=== PATIENT | female | born 1975 | race African-American/Black ===

== ENCOUNTER 2017-09-03 15:35 | Observation (INO) | payer SELFPAY ==
[~2017-09-03] VITALS: Ht 160 cm; Wt 59.0 kg
[2017-09-03] VITALS (7 sets, daily range): BP systolic 102–128; BP diastolic 57–65; PULSE 78–97; RESP 16–20; TEMP 97.6–98.9; O2SAT 99–100
--- NOTE | 2017-09-03 16:07 | PD ---
HPI Chief Complaint: Seizure Time Seen by Provider: 15:50 Travel History International Travel<30 days: No Contact w/Intl Traveler<30days: No Traveled to known affect area: No History of Present Illness HPI Patient is a 42-year-old female who presents to emergency room after she had a seizure while at home. As per EMS, family members called as patient had a witnessed seizure while in bed. Reports that this episode lasted for about 5 minutes, reports that it resolved on its own. Patient reports no incontinence of urine or stool during this episode. Patient reports that she has had history of seizures in the past, she had onset of seizures 15 years ago after she suffered a traumatic brain injury. Reports that she was not started on any antiepileptics. Reports that the last time she had a seizure was about one year ago [place] Patient denies any new brain traumas here in the emergency room, denies n/v. Denies headache or dizziness. Denies fever/chills. Denies chest pain/sob. Denies use of drugs/ alcohol. Patient with no complaints at this time. [facility] Past Medical History Seizures: Yes Influenza Vaccination: No ?: Not LMP: 08/15/2017 Past Surgical History Section: Yes (X2) Social History Alcohol Use: No Tobacco Use: Yes (3-4 CIGS/DAY) Substance Use: No Allergies-Medications (Allergen,Severity, Reaction): Coded Allergies: No Known Allergies (Unverified , 09/03/17) Reported Meds & Prescriptions Reported Meds & Active Scripts Active No Active Prescriptions or Reported Medications Physical Exam Narrative GENERAL: NAD, Nontoxic SKIN: Focused skin assessment warm/dry. HEAD: Atraumatic. Normocephalic. EYES: Pupils equal and round. No scleral icterus. No injection or drainage. ENT: No nasal bleeding or discharge. Mucous membranes pink and moist. NECK: Trachea midline. No JVD. CARDIOVASCULAR: Regular rate and rhythm. No murmur appreciated. RESPIRATORY: No accessory muscle use. Clear to auscultation. Breath sounds equal bilaterally. GASTROINTESTINAL: Abdomen soft, non-tender, nondistended. Hepatic and splenic margins not palpable. MUSCULOSKELETAL: No obvious deformities. No clubbing. No cyanosis. No edema. NEUROLOGICAL: Awake and alert. No obvious cranial nerve deficits. Motor grossly within normal limits. Normal speech. CN 2-12 grossly intact with no neurological deficits PSYCHIATRIC: Appropriate mood and affect; insight and judgment normal. Data Data Last Documented VS Vital Signs Date Time Temp Pulse Resp B/P (MAP) Pulse Ox O2 Delivery O2 Flow Rate FiO2 09/03/17 15:51 98.2 97 16 128/63 (84) 100 Nasal Cannula 2.00 Orders Orders Complete Blood Count With Diff (09/03/17 15:50) Drug Screen, Random Urine (09/03/17 15:50) Electrocardiogram (09/03/17 ) Ct Brain W/O Iv Contrast(Rout) (09/03/17 ) Blood Glucose (09/03/17 15:50) Ecg Monitoring (09/03/17 15:50) Iv Access Insert/Monitor (09/03/17 15:50) Oximetry (09/03/17 15:50) Comprehensive Metabolic Panel (09/03/17 15:50) Urinalysis - C+S If Indicated (09/03/17 15:50) Type And Screen (09/03/17 16:25) Red Blood Cells (Rbc) (09/03/17 16:25) Blood Product Administration (09/03/17 16:25) Sodium Chlor 0.9% 250 Ml Inj (Ns 250 Ml (09/03/17 16:30) Labs Laboratory Tests Test 09/03/17 16:00 White Blood Count 6.6 TH/MM3 Red Blood Count 3.59 MIL/MM3 Hemoglobin 6.8 GM/DL Hematocrit 21.3 % Mean Corpuscular Volume 59.3 FL Mean Corpuscular Hemoglobin 19.1 PG Mean Corpuscular Hemoglobin Concent 32.2 % Red Cell Distribution Width 20.3 % Platelet Count 258 TH/MM3 Mean Platelet Volume 8.4 FL CBC Comment AUTO DIFF Urine Color LIGHT-YELLOW Urine Turbidity CLEAR Urine pH 5.5 Urine Specific [place] 1.008 Urine Protein 30 mg/dL Urine Glucose (UA) NEG mg/dL Urine Ketones TRACE mg/dL Urine Occult Blood NEG Urine Nitrite NEG Urine Bilirubin NEG Urine Urobilinogen LESS THAN 2.0 MG/DL Urine Leukocyte Esterase TRACE Urine RBC LESS THAN 1 /hpf Urine WBC 1 /hpf Urine Squamous Epithelial Cells 2 /hpf Microscopic Urinalysis Comment CULT NOT INDICATED Blood Urea Nitrogen 6 MG/DL Creatinine 0.70 MG/DL Random Glucose 86 MG/DL Total Protein 7.6 GM/DL Albumin 3.5 GM/DL Calcium Level 8.3 MG/DL Alkaline Phosphatase 63 U/L Aspartate Amino Transf (AST/SGOT) 15 U/L Alanine Aminotransferase (ALT/SGPT) 15 U/L Total Bilirubin 0.2 MG/DL Sodium Level 137 MEQ/L Potassium Level 3.3 MEQ/L Chloride Level 103 MEQ/L Carbon Dioxide Level 22.7 MEQ/L Anion Gap 11 MEQ/L Estimat Glomerular Filtration Rate 112 ML/MIN Urine Opiates Screen NEG Urine Barbiturates Screen NEG Urine Amphetamines Screen NEG Urine Benzodiazepines Screen NEG Urine Cocaine Screen POS Urine Cannabinoids Screen NEG MDM Medical Decision Making Medical Screen Exam Complete: Yes Emergency Medical Condition: Yes Medical Record Reviewed: Yes Interpretation(s) EKG at 1611: NSR at 78bpm, qt/qtc: 428/461, no acute st or t wave changes Vital Signs Date Time Temp Pulse Resp B/P (MAP) Pulse Ox O2 Delivery O2 Flow Rate FiO2 09/03/17 15:51 98.2 97 16 128/63 (84) 100 Nasal Cannula 2.00 09/03/17 15:49 98.2 91 16 128/63 (84) 100 Differential Diagnosis Seizures, ICH, electrolyte abnormality Narrative Course During the course of the patients emergency department visit, the patients history, examination, and differential diagnosis were reviewed with the patient. The patient was placed on a offset lithographic press operator with oximetry and frequent blood pressure monitoring. The patient had 20 IV access obtained and blood work sent for analysis. CBC & BMP Diagram 09/03/17 16:00 Total Protein 7.6, Albumin 3.5, Calcium Level 8.3 L, Alkaline Phosphatase 63, Aspartate Amino Transf (AST/SGOT) 15, Alanine Aminotransferase (ALT/SGPT) 15, Total Bilirubin 0.2 Patient's hemoglobin 6.8, she was typed and screened, 1 unit of blood ordered Patient signed out to care of Dr. Winslow at change of shift Scripts No Active Prescriptions or Reported Meds Leslie Gonzalez DO Sep 03, 2017 16:07
[2017-09-03 16:18] LABS: MEAN CELL VOLUME 59.3 FL (80.0-100.0); MEAN CORPUSCULAR HEMOGLOBIN 19.1 PG (27.0-34.0); MEAN CORPUSCULAR HGB CONC 32.2 % (32.0-36.0); MEAN PLATELET VOLUME 8.4 FL (7.0-11.0); PLATELET COUNT 258 TH/MM3 (150-450); RED BLOOD COUNT 3.59 MIL/MM3 (4.00-5.30); RED CELL DISTRIBUTION WIDTH 20.3 % (11.6-17.2); WHITE BLOOD COUNT 6.6 TH/MM3 (4.0-11.0)
[2017-09-03 16:25] LABS: HEMATOCRIT 21.3 % (35.0-46.0); HEMOGLOBIN 6.8 GM/DL (11.6-15.3)
[2017-09-03 16:26] LABS: BILIRUBIN, URINE NEG (NEG); BLOOD, URINE NEG (NEG); GLUCOSE,URINE NEG (NEG); KETONE, URINE TRACE mg/dL (NEG); NITRITE,URINE NEG (NEG); PH, URINE 5.5 (5.0-8.5); SQUAMOUS EPITHELIAL CELL URINE 2 /hpf (0-5); URINE COLOR LIGHT-YELLOW (YELLW/STRAW); URINE LEUKOCYTE ESTERASE TRACE (NEG)
[2017-09-03] MEDS ORDERED: SODIUM CHLOR 0.9% 250 ML INJ 250 ML IV ONE ×2 (16:30)
[2017-09-03 16:40] LABS: ALBUMIN 3.5 GM/DL (3.4-5.0); ALT (GPT) 15 U/L (10-53); AST (GOT) 15 U/L (15-37); BICARBONATE 22.7 MEQ/L (21.0-32.0); BLOOD UREA NITROGEN 6 MG/DL (7-18); CALCIUM 8.3 MG/DL (8.5-10.1); CHLORIDE 103 MEQ/L (98-107); GLOMERULAR FILTRATION RATE 112 ML/MIN (>89); GLUCOSE,RANDOM 86 MG/DL (74-106); SODIUM (NA) 137 MEQ/L (136-145)
[2017-09-03 16:42] LABS: ALKALINE PHOSPHATASE 63 U/L (45-117); TOTAL BILIRUBIN ADULT 0.2 MG/DL (0.2-1.0); TOTAL PROTEIN 7.6 GM/DL (6.4-8.2)
[2017-09-03 16:58] LABS: LYMPHOCYTES 31 % (9-44); MONOCYTES 8 % (0-8); POLYS (SEG NEUTROPHILS) 61 % (16-70); TARGET CELLS 1+ (NORMAL)
[2017-09-03] MEDS ORDERED: POTASSIUM CHLORIDE 10 MEQ CONTROLLED RELEASE TAB PO ONE ×2 (17:00)
--- NOTE | 2017-09-03 17:27 | RADRPT ---
EXAM DATE/TIME: 09/03/2017 17:03 [place] COMPARISON: No previous studies available for comparison. INDICATIONS : Seizure today RADIATION DOSE: 56.35 CTDIvol (mGy) MEDICAL HISTORY : Seizures. SURGICAL HISTORY : None. ENCOUNTER: Initial ACUITY: 1 day PAIN SCALE: 0/10 LOCATION: cranial TECHNIQUE: Multiple contiguous axial images were obtained of the head. Using automated exposure control and adj ustment of the mA and/or kV according to patient size, radiation dose was kept as low as reasonably a chievable to obtain optimal diagnostic quality images. DICOM format image data is available electro nically for review and comparison. FINDINGS: CEREBRUM: The ventricles are normal for age. No evidence of midline shift, mass lesion, hemorrhage or acute in farction. No extra-axial fluid collections are seen. POSTERIOR FOSSA: The cerebellum and brainstem are intact. The 4th ventricle is midline. The cerebellopontine angle i s unremarkable. EXTRACRANIAL: The visualized portion of the orbits is intact. SKULL: The calvaria is intact. No evidence of skull fracture. CONCLUSION: No acute findings in the brain. Albert Cai MD on September 03, 2017 at 17:25 Board Certified Radiologist. This report was verified electronically.
--- NOTE | 2017-09-03 18:46 | PD ---
Physical Exam Narrative GENERAL: SKIN: Warm and dry. HEAD: Atraumatic. Normocephalic. EYES: Pupils equal and round. No scleral icterus. No injection or drainage. ENT: No nasal bleeding or discharge. Mucous membranes pink and moist. NECK: Trachea midline. No JVD. CARDIOVASCULAR: Regular rate and rhythm. RESPIRATORY: No accessory muscle use. Clear to auscultation. Breath sounds equal bilaterally. GASTROINTESTINAL: Abdomen soft, non-tender, nondistended. Hepatic and splenic margins not palpable. MUSCULOSKELETAL: Extremities without clubbing, cyanosis, or edema. No obvious deformities. NEUROLOGICAL: Awake and alert. No obvious cranial nerve deficits. Motor grossly within normal limits. Five out of 5 muscle strength in the arms and legs. Normal speech. PSYCHIATRIC: Appropriate mood and affect; insight and judgment normal. Data Data Last Documented VS Vital Signs Date Time Temp Pulse Resp B/P (MAP) Pulse Ox O2 Delivery O2 Flow Rate FiO2 09/03/17 17:52 78 16 111/65 (80) 99 Room Air 09/03/17 15:51 98.2 2.00 Orders Orders Complete Blood Count With Diff (09/03/17 15:50) Drug Screen, Random Urine (09/03/17 15:50) Electrocardiogram (09/03/17 ) Ct Brain W/O Iv Contrast(Rout) (09/03/17 ) Blood Glucose (09/03/17 15:50) Ecg Monitoring (09/03/17 15:50) Iv Access Insert/Monitor (09/03/17 15:50) Oximetry (09/03/17 15:50) Comprehensive Metabolic Panel (09/03/17 15:50) Urinalysis - C+S If Indicated (09/03/17 15:50) Type And Screen (09/03/17 16:25) Red Blood Cells (Rbc) (09/03/17 16:25) Blood Product Administration (09/03/17 16:25) Sodium Chlor 0.9% 250 Ml Inj (Ns 250 Ml (09/03/17 16:30) Potassium Chloride (Kcl) (09/03/17 17:00) Labs Laboratory Tests Test 09/03/17 16:00 White Blood Count 6.6 TH/MM3 Red Blood Count 3.59 MIL/MM3 Hemoglobin 6.8 GM/DL Hematocrit 21.3 % Mean Corpuscular Volume 59.3 FL Mean Corpuscular Hemoglobin 19.1 PG Mean Corpuscular Hemoglobin Concent 32.2 % Red Cell Distribution Width 20.3 % Platelet Count 258 TH/MM3 Mean Platelet Volume 8.4 FL CBC Comment AUTO DIFF Differential Total Cells Counted 100 Neutrophils % (Manual) 61 % Lymphocytes % 31 % Monocytes % 8 % Neutrophils # (Manual) 4.0 TH/MM3 Differential Comment FINAL DIFF MANUAL Platelet Estimate NORMAL Platelet Morphology Comment NORMAL Target Cells 1+ Urine Color LIGHT-YELLOW Urine Turbidity CLEAR Urine pH 5.5 Urine Specific [place] 1.008 Urine Protein 30 mg/dL Urine Glucose (UA) NEG mg/dL Urine Ketones TRACE mg/dL Urine Occult Blood NEG Urine Nitrite NEG Urine Bilirubin NEG Urine Urobilinogen LESS THAN 2.0 MG/DL Urine Leukocyte Esterase TRACE Urine RBC LESS THAN 1 /hpf Urine WBC 1 /hpf Urine Squamous Epithelial Cells 2 /hpf Microscopic Urinalysis Comment CULT NOT INDICATED Blood Urea Nitrogen 6 MG/DL Creatinine 0.70 MG/DL Random Glucose 86 MG/DL Total Protein 7.6 GM/DL Albumin 3.5 GM/DL Calcium Level 8.3 MG/DL Alkaline Phosphatase 63 U/L Aspartate Amino Transf (AST/SGOT) 15 U/L Alanine Aminotransferase (ALT/SGPT) 15 U/L Total Bilirubin 0.2 MG/DL Sodium Level 137 MEQ/L Potassium Level 3.3 MEQ/L Chloride Level 103 MEQ/L Carbon Dioxide Level 22.7 MEQ/L Anion Gap 11 MEQ/L Estimat Glomerular Filtration Rate 112 ML/MIN Urine Opiates Screen NEG Urine Barbiturates Screen NEG Urine Amphetamines Screen NEG Urine Benzodiazepines Screen NEG Urine Cocaine Screen POS Urine Cannabinoids Screen NEG MDM Medical Record Reviewed: Yes Supervised Visit with CHANA: No Diagnosis Primary Impression: symptomatic anemia Admitting Information Admitting Physician Requests: Observation Scripts No Active Prescriptions or Reported Meds Blayne Winslow MD Sep 03, 2017 18:46
[2017-09-03] MEDS ORDERED: GADODIAMIDE PF 287 MG/ML 5 ML VIAL (for RAD MRI) IV PUSH ONE ×2 (19:23)
[2017-09-03] MEDS ORDERED: IOHEXOL 350 MG/ML 10 ML VIAL (for RAD DIAG) IVCONTRAST ONE ×2 (19:23)
[2017-09-03] MEDS ORDERED: ONDANSETRON HCL 4 MG/2 ML VIAL IVP PRN ×2 (19:30)
[2017-09-03] MEDS ORDERED: NALOXONE HCL 0.4 MG/ML AMP IV PUSH PRN ×2 (19:30)
[2017-09-03] MEDS ORDERED: SODIUM CHLORIDE 0.9% FLUSH 10 ML FLUSH IV FLUSH PRN ×2 (19:30)
[2017-09-03] MEDS ORDERED: SENNOSIDES 8.6 MG TAB PO PRN ×2 (19:30)
[2017-09-03] MEDS ORDERED: MAGNESIUM HYDROXIDE SUSP 30 ML CUP PO PRN ×2 (19:30)
[2017-09-03] MEDS ORDERED: LACTULOSE SYRUP 20 GM/30 ML CUP PO PRN ×2 (19:30)
[2017-09-03] MEDS ORDERED: BISACODYL 10 MG SUPP RECTAL PRN ×2 (19:30)
[2017-09-03] MEDS ORDERED: IRON SUCROSE INJ 100 MG in SODIUM CHLORIDE 0.9% INJ 100 ML IV ONE ×4 (21:00)
--- NOTE | 2017-09-03 21:08 | EKG ---
Date Performed: 09/03/2017 Time Performed: 16:11:10 PTAGE: 42 years EKG: Sinus rhythm NORMAL ECG PREVIOUS TRACING : 12/30/1992 10.31 Compared to prior tracing no significant change DOCTOR: Rolando Hernandez Interpretating Date/Time 09/03/2017 21:07:08
[2017-09-03 21:16] LABS: % SATURATION IRON PROFILE 2.5 % (20-50); IRON (FE) 12 MCG/DL (50-170); TOTAL IRON BINDING CAPACITY 476 MCG/DL (250-450)
[2017-09-03 21:19] LABS: FERRITIN 4 NG/ML (8-252)
--- NOTE | 2017-09-03 21:40 | HHI.HP ---
[facility] No Primary Care Physician Admission Diagnosis SYMPTOMATIC ANEMIA/NEARSYNCOPE Diagnoses: (1) Symptomatic anemia (2) Seizures Chief Complaint: Seizure x 1 and weakness Travel History International Travel<30 Days: No Contact w/Intl Traveler <30 Da: No Traveled to Known Affected Are: No History of Present Illness Written by Hayley Delvalle, acting as scribe for Dr. Lewis on 09/03/17 at 21:34. Reports having a seizure at about 4 p.m. Denies bowel or bladder incontinence. Reports weakness and fatigue with feeling cold for about 1 week. She has also been taking ibuprofen 800 mg once a day for the last week for headache. Denies history of anemia. States she's never been told she needs iron. Reports she had been on her period for 3 weeks with heavy bleeding. Off her period for the past week. Denies chest pain, shortness of breath, nausea, vomiting, or diarrhea. Denies abdominal pain, black or bloody stools. She states she's been having some constipation. Denies using cocaine or taking decongestants. She states she's been drinking a lot of coffee for the past week - 3 or 4 cups a day. No coffee prior to last week. Does not take antiepileptic medications, last seizure was 6 months ago, she does not follow with a neurologist. Review of Systems Except as stated in HPI: all other systems reviewed are Neg Past Family Social History Past Medical History Seizure - most recent seizure occurred 6 months ago TBI 15 years ago . Past Surgical History 21 years ago . Reported Medications Ibuprofen 800 mg once a day for about a week due to headache x 1 week . Allergies: Coded Allergies: No Known Allergies (Unverified , 09/03/17) Active Ordered Medications Current Medications Sodium Chloride 250 ml @ 15 mls/hr ONCE ONCE IV ; Start 09/03/17 at 16:30; Stop 09/04/17 at 09:09 Potassium Chloride (KCl) 30 meq ONCE ONCE PO Last administered on 09/03/17t 17:06; Start 09/03/17 at 17:00; Stop 09/03/17 at 17:01; Status DC Iron Sucrose 100 mg/Sodium Chloride 105 ml @ 105 mls/hr ONCE ONCE IV ; Start 09/03/17 at 21:00; Stop 09/03/17 at 21:59 Sodium Chloride (NS Flush) 2 ml UNSCH PRN IV FLUSH FLUSH AFTER USING IV ACCESS ; Start 09/03/17 at 19:30 Sodium Chloride (NS Flush) 2 ml BID IV FLUSH ; Start 09/03/17 at 21:00 Ondansetron HCl (Zofran Inj) 4 mg Q6H PRN IVP NAUSEA OR VOMITING; Start at 19:30 Naloxone HCl (Narcan Inj) 0.4 mg UNSCH PRN IV PUSH SEE LABEL COMMENTS; Start 09/03/17 at 19:30 Magnesium Hydroxide (Milk Of Magnesia Liq) 30 ml Q12H PRN PO Mild constipation ; Start 09/03/17 at 19:30 Sennosides (Senokot) 17.2 mg Q12H PRN PO Moderate constipation; Start at 19:30 Bisacodyl (Dulcolax Supp) 10 mg DAILY PRN RECTAL SEVERE CONSITIPATION; Start 09/03/17 at 19:30 Lactulose (Lactulose Liq) 30 ml DAILY PRN PO SEVERE CONSITIPATION; Start 09/03 at 19:30 Family History Mother with anemia No family history of colon cancer . Social History Tobacco: smoking since age 23 y/o - 4 - 6 cigarettes daily . Physical Exam Vital Signs Vital Signs Date Time Temp Pulse Resp B/P (MAP) Pulse Ox O2 Delivery O2 Flow Rate FiO2 09/03/17 20:37 98.8 88 17 102/57 (72) 99 09/03/17 19:21 97.6 87 16 113/62 (79) 100 Room Air 09/03/17 17:52 78 16 111/65 (80) 99 Room Air 09/03/17 15:51 98.2 97 16 128/63 (84) 100 Nasal Cannula 2.00 09/03/17 15:49 98.2 91 16 128/63 (84) 100 Physical Exam GENERAL: This is a well-nourished, well-developed patient, in no apparent distress. Lying in bed eating a [employer] sandwich. SKIN: No rashes, ecchymoses or lesions. Cool and dry. HEAD: Atraumatic. Normocephalic. EYES: No scleral icterus. No injection or drainage. ENT: Nose without bleeding, purulent drainage. NECK: Trachea midline. No JVD. CARDIOVASCULAR: Regular rate and rhythm without murmurs, gallops, or rubs. RESPIRATORY: Clear to auscultation. Breath sounds equal bilaterally. No wheezes , rales, or rhonchi. GASTROINTESTINAL: Abdomen soft, non-tender, nondistended. No guarding. MUSCULOSKELETAL: Extremities without clubbing, cyanosis, or edema. No calf tenderness. NEUROLOGICAL: Awake and alert. Motor and sensory grossly within normal limits. Normal speech. . Laboratory Laboratory Tests Test 09/03/17 16:00 White Blood Count 6.6 Red Blood Count 3.59 Hemoglobin 6.8 Hematocrit 21.3 Mean Corpuscular Volume 59.3 Mean Corpuscular Hemoglobin 19.1 Mean Corpuscular Hemoglobin Concent 32.2 Red Cell Distribution Width 20.3 Platelet Count 258 Mean Platelet Volume 8.4 CBC Comment AUTO DIFF Differential Total Cells Counted 100 Neutrophils % (Manual) 61 Lymphocytes % 31 Monocytes % 8 Neutrophils # (Manual) 4.0 Differential Comment FINAL DIFF MANUAL Platelet Estimate NORMAL Platelet Morphology Comment NORMAL Target Cells 1+ Urine Color LIGHT-YELLOW Urine Turbidity CLEAR Urine pH 5.5 Urine Specific [place] 1.008 Urine Protein 30 Urine Glucose (UA) NEG Urine Ketones TRACE Urine Occult Blood NEG Urine Nitrite NEG Urine Bilirubin NEG Urine Urobilinogen LESS THAN 2.0 Urine Leukocyte Esterase TRACE Urine RBC LESS THAN 1 Urine WBC 1 Urine Squamous Epithelial Cells 2 Microscopic Urinalysis Comment CULT NOT INDICATED Blood Urea Nitrogen 6 Creatinine 0.70 Random Glucose 86 Total Protein 7.6 Albumin 3.5 Calcium Level 8.3 Alkaline Phosphatase 63 Aspartate Amino Transf (AST/SGOT) 15 Alanine Aminotransferase (ALT/SGPT) 15 Total Bilirubin 0.2 Sodium Level 137 Potassium Level 3.3 Chloride Level 103 Carbon Dioxide Level 22.7 Anion Gap 11 Estimat Glomerular Filtration Rate 112 Iron Level 12 Total Iron Binding Capacity 476 Percent Iron Saturation 2.5 Ferritin 4 Urine Opiates Screen NEG Urine Barbiturates Screen NEG Urine Amphetamines Screen NEG Urine Benzodiazepines Screen NEG Urine Cocaine Screen POS Urine Cannabinoids Screen NEG Result Diagram: 09/03/17 1600 09/03/17 1600 Imaging Last Impressions Head CT 09/03/17 0000 Signed Impressions: Service Date/Time: Sunday, September 03, 2017 17:03 - CONCLUSION: No acute findings in the brain. Albert Cai MD . Caprini VTE Risk Assessment Caprini VTE Risk Assessment: No/Low Risk (score <= 1) VTE Pharm Contraindication: severe symptomatic anemia Caprini Risk Assessment Model Point Value = 1 Point Value = 2 Point Value = 3 Point Value = 5 Age 41-60 Minor surgery BMI > 25 kg/m2 Swollen legs Varicose veins or History of unexplained or recurrent spontaneous Oral contraceptives or hormone replacement Sepsis (< 1 month) Serious lung disease, including pneumonia (< 1 month) Abnormal pulmonary function Acute myocardial infarction Congestive heart failure (< 1 month) History of inflammatory bowel disease Medical patient at bed rest Age 61-74 Arthroscopic surgery Major open surgery (> 45 min) Laparoscopic surgery (> 45 min) Malignancy Confined to bed (> 72 hours) Immobilizing plaster cast Central venous access Age >= 75 History of VTE Family history of VTE Factor V Leiden Prothrombin [id number] Lupus anticoagulant Anticardiolipin antibodies Elevated serum homocysteine Heparin-induced thrombocytopenia Other congenital or acquired thrombophilia Stroke (< 1 month) Elective arthroplasty Hip, pelvis, or leg fracture Acute spinal cord injury (< 1 month) Prophylaxis Regimen Total Risk Factor Score Risk Level Prophylaxis Regimen 0-1 Low Early ambulation 2 Moderate Order ONE of the following: *Sequential Compression Device (SCD) *Heparin 5000 units SQ BID 3-4 Higher Order ONE of the following medications: *Heparin 5000 units SQ TID *Enoxaparin/Lovenox 40 mg SQ daily (WT < 150 kg, CrCl > 30 mL/min) *Enoxaparin/Lovenox 30 mg SQ daily (WT < 150 kg, CrCl > 10-29 mL/min) *Enoxaparin/Lovenox 30 mg SQ BID (WT < 150 kg, CrCl > 30 mL/min) AND/OR *Sequential Compression Device (SCD) 5 or more Highest Order ONE of the following medications: *Heparin 5000 units SQ TID (Preferred with Epidurals) *Enoxaparin/Lovenox 40 mg SQ daily (WT < 150 kg, CrCl > 30 mL/min) *Enoxaparin/Lovenox 30 mg SQ daily (WT < 150 kg, CrCl > 10-29 mL/min) *Enoxaparin/Lovenox 30 mg SQ BID (WT < 150 kg, CrCl > 30 mL/min) AND *Sequential Compression Device (SCD) Assessment and Plan Problem List: (1) Symptomatic anemia ICD Code: D64.9 - Anemia, unspecified (2) Seizures ICD Code: R56.9 - Unspecified convulsions (3) Hypokalemia ICD Code: E87.6 - Hypokalemia Assessment and Plan 42 y/o female who presented to the ED on 09/03 after a witnessed seizure at home who was found to be severely anemic in ED. Symptomatic Anemia - s/p 1 unit of PRBCs - with symptom improvement - Iron/TIBC profile, ferritin to check for CELESTE - iron supplementation with Iron Sucrose 100 mg IV - advised follow up with reproduction technician as an outpatient for management of heavy menses - repeat CBC in a.m. and follow results Seizure, recurrent - seizure precautions - verbally ordered - neuro checks q4h - Consult neurology - appreciate assistance - EEG study to evaluate for seizure activity - advised caffeine avoidance-turns out cocaine is positive on urine drug screen. She denied cocaine. I would recommend she stop cocaine. Hypokalemia - Potassium 3.3 on admission - Potassium replaced - recheck BMP in a.m. and follow results including potassium level and provide additional replacement if needed. DVT prophylaxis - SCDs Discussed Condition With ER physician and patient This note was transcribed by familia Delvalle. I, Dr. Ger Lewis personally performed the history, physical exam, and medical decision making; and confirmed the accuracy of the information in the transcribed note. Authenticated by Dr. Ger Lewis on 09/04/17 at 07:10. . Hayley Delvalle Sep 03, 2017 21:40 Ger Lewis MD Sep 04, 2017 07:10
[2017-09-03] MEDS: SODIUM CHLORIDE 0.9% FLUSH 10 ML FLUSH IV FLUSH SCH ×2 (21:44)
[2017-09-04] VITALS (12 sets, daily range): BP systolic 103–129; BP diastolic 56–76; PULSE 70–89; RESP 16–22; TEMP 97.6–98.9; O2SAT 100
[2017-09-04 08:20] LABS: AUTOMATED NEUTROPHIL # 7.4 TH/MM3 (1.8-7.7); BASOPHIL # 0.1 TH/MM3 (0-0.2); BASOPHIL % 0.7 % (0.0-2.0); EOSINOPHIL # 0.1 TH/MM3 (0-0.4); EOSINOPHIL % 1.4 % (0.0-4.0); HEMATOCRIT 30.3 % (35.0-46.0); HEMOGLOBIN 9.1 GM/DL (11.6-15.3); LYMPH % 19.5 % (9.0-44.0); MEAN CELL VOLUME 64.6 FL (80.0-100.0); MEAN CORPUSCULAR HEMOGLOBIN 19.3 PG (27.0-34.0); MEAN PLATELET VOLUME 8.6 FL (7.0-11.0); MONO % 7.5 % (0.0-8.0); MONOCYTE # 0.8 TH/MM3 (0-0.9); NEUT % 70.9 % (16.0-70.0); PLATELET COUNT 309 TH/MM3 (150-450); RED BLOOD COUNT 4.69 MIL/MM3 (4.00-5.30); RED CELL DISTRIBUTION WIDTH 23.7 % (11.6-17.2); WHITE BLOOD COUNT 10.4 TH/MM3 (4.0-11.0)
[2017-09-04 08:21] LABS: MEAN CORPUSCULAR HGB CONC 29.9 % (32.0-36.0)
[2017-09-04 08:31] LABS: BICARBONATE 24.5 MEQ/L (21.0-32.0); CALCIUM 8.4 MG/DL (8.5-10.1); CREATININE 0.73 MG/DL (0.50-1.00)
[2017-09-04] MEDS: SODIUM CHLORIDE 0.9% FLUSH 10 ML FLUSH IV FLUSH SCH ×4 (09:00→20:02)
[2017-09-04] MEDS ORDERED: SODIUM CHLOR 0.9% 1000 ML INJ 1,000 ML IV SCH ×2 (09:00)
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
--- NOTE | 2017-09-04 09:26 | HHI.PR ---
Subjective Remarks Follow up on patient with seizure, anemia. Patient seen and examined. Patient witnessed ambulating in hallway holding grandchild. Family at bedside. No seizure activity reported. States she feels better after receiving unit of blood. She is hoping to be discharged today. She denies any complaints. Denies any chest pain, dyspnea, N/V, chest pain, abdominal pain, urinary complaints, diarrhea or constipation. Objective Vitals Vital Signs Date Time Temp Pulse Resp B/P (MAP) Pulse Ox O2 Delivery O2 Flow Rate FiO2 09/04/17 08:35 86 124/76 (92) 100 09/04/17 08:34 86 22 113/66 (82) 100 09/04/17 07:51 98.6 82 22 117/63 (81) 100 09/04/17 02:52 98.5 85 16 103/60 (74) 100 09/04/17 00:40 98.9 89 18 120/68 (85) 100 09/04/17 00:32 98.9 89 18 120/68 100 09/03/17 22:12 98.9 85 18 116/61 100 09/03/17 21:58 98.5 78 20 108/64 100 09/03/17 20:37 98.8 88 17 102/57 (72) 99 09/03/17 19:21 97.6 87 16 113/62 (79) 100 Room Air 09/03/17 17:52 78 16 111/65 (80) 99 Room Air 09/03/17 15:51 98.2 97 16 128/63 (84) 100 Nasal Cannula 2.00 09/03/17 15:49 98.2 91 16 128/63 (84) 100 I/O 09/03/17 09/03/17 09/03/17 09/04/17 09/04/17 09/04/17 07:00 15:00 23:00 07:00 15:00 23:00 Intake Total 10 ml 525 ml Balance 10 ml 525 ml Intake IV Total 205 ml Packed Cells 320 ml Blood Product IV Normal Saline Flush 10 ml Result Diagram: 09/04/17 0657 09/04/17 0657 Imaging Last Impressions Head CT 09/03/17 0000 Signed Impressions: Service Date/Time: Sunday, September 03, 2017 17:03 - CONCLUSION: No acute findings in the brain. Albert Cai MD Objective Remarks GENERAL: This is a well-nourished, well-developed patient, in no apparent distress. Awake and alert. Ambulating in hallway carrying granddaughter. SKIN: No rashes, ecchymoses or lesions. Cool and dry. HEAD: Atraumatic. Normocephalic. EYES: No scleral icterus. No injection or drainage. EOMI. ENT: Nose without bleeding, purulent drainage. MMM. NECK: Trachea midline. CARDIOVASCULAR: Regular rate and rhythm without murmurs, gallops, or rubs. RESPIRATORY: Clear to auscultation. Breath sounds equal bilaterally. No wheezes , rales, or rhonchi. GASTROINTESTINAL: Abdomen soft, non-tender, nondistended. No guarding. MUSCULOSKELETAL: Extremities without clubbing, cyanosis, or edema. No calf tenderness. NEUROLOGICAL: Awake and alert. Motor and sensory grossly within normal limits. Normal speech. Medications and IVs Current Medications Medications (Trade) Dose Ordered Sig/Monet Route Start Time Stop Time Status Last Admin (NS Flush) 2 ml UNSCH PRN IV FLUSH 09/03/17 19:30 (NS Flush) 2 ml BID IV FLUSH 09/03/17 21:00 09/03/17 21:44 (Zofran Inj) 4 mg Q6H PRN IVP 09/03/17 19:30 (Narcan Inj) 0.4 mg UNSCH PRN IV PUSH 09/03/17 19:30 (Milk Of Magnesia Liq) 30 ml Q12H PRN PO 09/03/17 19:30 (Senokot) 17.2 mg Q12H PRN PO 09/03/17 19:30 (Dulcolax Supp) 10 mg DAILY PRN RECTAL 09/03/17 19:30 (Lactulose Liq) 30 ml DAILY PRN PO 09/03/17 19:30 (Flu (Quadrivalent) Vaccine Inj) 0.5 ml ONCE ONCE IM 09/04/17 10:00 09/04/17 10:01 Sodium Chloride 1,000 ml @ 75 mls/hr [id number] IV 09/04/17 09:00 (Ferrous Sulfate) 325 mg BID PO 09/04/17 09:00 UNV (Vitamin C) 500 mg BID PO 09/04/17 09:00 UNV A/P Problem List: (1) Symptomatic anemia ICD Code: D64.9 - Anemia, unspecified (2) Seizures ICD Code: R56.9 - Unspecified convulsions (3) Hypokalemia ICD Code: E87.6 - Hypokalemia Assessment and Plan 42 y/o female who presented to the ED on 09/03 after a witnessed seizure at home who was found to be severely anemic in ED. Symptomatic Anemia, hemoglobin 6.8 CELESTE - s/p 1 unit of PRBCs - with symptom improvement. H/H 9.1/30.3 this am. - Iron 12, TIBC 476, %sat 2.5, Ferritin 4. s/p Iron Sucrose 100mg IV. Begin po iron supplementation with vitamin C. - advised follow up with project manager [employer] [facility] as an outpatient for management of heavy menses Seizure, recurrent - seizure precautions - verbally ordered - neuro checks q4h - Neurology following - appreciate assistance. Workup in progress. EEG and MRI brain pending. - Orthostatics negative. - advised caffeine avoidance-turns out cocaine is positive on urine drug screen. She denied cocaine. I would recommend she stop cocaine. Hypokalemia - Potassium 3.3 on admission - Potassium replaced - Resolved DVT prophylaxis - SCDs Discussed with patient and Dr. Chirinos Discharge Planning Pending further workup and Neurology clearance for discharge Lissy Alvarez Sep 04, 2017 09:26
[2017-09-04 09:44] LABS: CHOLESTEROL 186 MG/DL (120-200); TRIGLYCERIDES 74 MG/DL (42-150)
[2017-09-04] MEDS ORDERED: ASCORBIC ACID 500 MG TAB PO SCH ×2 (10:00)
[2017-09-04] MEDS ORDERED: FERROUS SULFATE 325 MG (65 MG ELEMENTAL IRON) TAB PO SCH ×2 (10:00)
[2017-09-04] MEDS ORDERED: INFLUENZA VIRUS VACCINE (QUADRIVALENT) 0.5 ML SYR IM ONE ×2 (10:00)
[2017-09-04 10:09] LABS: CHOLESTEROL/ HDL RATIO 2.52 RATIO; HDL CHOLESTEROL 73.6 MG/DL (40.0-60.0); LDL CHOLESTEROL 98 MG/DL (0-99); TROPONIN I LESS THAN 0.02 NG/ML (0.02-0.05)
--- NOTE | 2017-09-04 10:42 | RADRPT ---
EXAM DATE/TIME: 09/04/2017 10:02 [facility] COMPARISON: No previous studies available for comparison. INDICATIONS : Cerebrovascular accident. MEDICAL HISTORY : Seizures. Anemia. SURGICAL HISTORY : section. ENCOUNTER: Initial ACUITY: 1 day PAIN SCORE: 0/10 LOCATION: Bilateral neck PEAK SYSTOLIC VELOCITIES (cm/sec): ICA/CCA RATIO: Right: 1.1 Left: 1.0 ICA: Right: 109 Left: 111 CCA: Right: 104 Left: 111 ECA: Right: 107 Left: 79 VERTEBRAL: Right: 66 antegrade Left: 22 antegrade Elevated flow velocities and ICA/CCA ratios have been found to correlate with increased degrees of vessel stenosis, calculated as percentage of diameter relative to a normal segment of distal ICA/CCA FINDINGS: RIGHT CAROTID: There is no evidence for a hemodynamically significant carotid stenosis. Minimal int imal hyperplasia is present with scattered calcific plaque. LEFT CAROTID: There is no evidence for a hemodynamically significant carotid stenosis. Minimal inti mal hyperplasia is present with scattered calcific plaque. VERTEBRAL ARTERIES: Flow is antegrade in both vertebral arteries. MISCELLANEOUS: There are no ancillary masses or adenopathy. CONCLUSION: Negative examination for a hemodynamically significant carotid stenosis. Board Certified Radiologist. This report was verified electronically.
--- NOTE | 2017-09-04 12:17 | ECHRPT ---
Indication: CVA/TIA CONCLUSIONS Normal left ventricular size and wall thickness. The left ventricular systolic function is normal wi th an estimated ejection fraction in the range of 60-65%. Left ventricular diastolic function parameters a re normal. Trace mitral valve regurgitation. There may be a torn chordae tendinae in the mitral valve structu re but without any mitral prolapse or significant regurgitation. Trace tricuspid regurgitation. BP: 124 / 76 HR: Rhythm: Sinus MEASUREMENTS (Male / Female) Normal Values Technical Quality:Fair 2D ECHO LV Diastolic Diameter PLAX 4.7 cm 4.2 - 5.9 / 3.9 - 5.3 cm LV Systolic Diameter PLAX 3.7 cm IVS Diastolic Thickness 0.7 cm 0.6 - 1.0 / 0.6 - 0.9 cm LVPW Diastolic Thickness 0.7 cm 0.6 - 1.0 / 0.6 - 0.9 cm LV Relative Wall Thickness 0.3 LVOT Diameter 2.1 cm Aortic Root Diameter 3.0 cm LA Systolic Diameter LX 2.7 cm 3.0 - 4.0 / 2.7 - 3.8 cm M-MODE AV Cusp Separation MM 2.4 cm DOPPLER AV Peak Velocity 125.0 cm/s AV Peak Gradient 6.3 mmHg AV Mean Gradient 3.0 mmHg AV Velocity Time Integral 22.5 cm LVOT Peak Velocity 72.9 cm/s LVOT Peak Gradient 2.1 mmHg LVOT Velocity Time Integral 12.8 cm AV Area Cont Eq vti 2.0 cm AV Area Cont Eq pk 2.0 cm Mitral E Point Velocity 72.6 cm/s Mitral A Point Velocity 50.8 cm/s Mitral E to A Ratio 1.4 LV E' Lateral Velocity 13.8 cm/s Mitral E to LV E' Lateral Ratio 5.3 LV E' Septal Velocity 8.3 cm/s Mitral E to LV E' Septal Ratio 8.8 TR Peak Velocity 171.0 cm/s TR Peak Gradient 11.7 mmHg PV Peak Velocity 63.9 cm/s PV Peak Gradient 1.6 mmHg FINDINGS LEFT VENTRICLE Normal left ventricular size and wall thickness. The left ventricular systolic function is normal wi th an estimated ejection fraction in the range of 60-65%. Left ventricular diastolic function parameters a re normal. RIGHT VENTRICLE Normal right ventricular size and systolic function. LEFT ATRIUM The left atrial size is normal. RIGHT ATRIUM The right atrial size is normal. ATRIAL SEPTUM Normal atrial septal thickness without atrial level shunting by limited color doppler interrogation. AORTA The aortic root and proximal ascending aorta are normal in size on limited imaging. MITRAL VALVE Trace mitral valve regurgitation. There may be a torn chordae tendinae in the mitral valve structu re but without any mitral prolapse or significant regurgitation. AORTIC VALVE Trileaflet aortic valve. No aortic valve stenosis or regurgitation. TRICUSPID VALVE Trace tricuspid regurgitation. PULMONARY VALVE The pulmonary valve is not well visualized. VESSELS The inferior vena cava is normal in size. PERICARDIUM No pericardial effusion. Gianfranco Zelaya MD (Electronically Signed) Final Date:04 September 2017 12:16
[2017-09-04] MEDS: ASCORBIC ACID 500 MG TAB PO SCH ×4 (12:58→17:53)
[2017-09-04] MEDS: FERROUS SULFATE 325 MG (65 MG ELEMENTAL IRON) TAB PO SCH ×4 (12:58→17:53)
--- NOTE | 2017-09-04 13:09 | RADRPT ---
EXAM DATE/TIME: 09/04/2017 11:34 [facility] COMPARISON: CT BRAIN W/O CONTRAST, September 03, 2017, 17:03. INDICATIONS : Syncope yesterday. Seizure. CONTRAST: 11 cc Omniscan (gadodiamide) IV MEDICAL HISTORY : Seizures. SURGICAL HISTORY : section. ENCOUNTER: Initial ACUITY: 2 day PAIN SCORE: 0/10 LOCATION: head TECHNIQUE: Multiplanar, multisequence MRI of the brain was performed both prior to and following the administrat ion of paramagnetic contrast. FINDINGS: CEREBRUM: The ventricles are normal for age. No evidence of midline shift, mass lesion, hemorrhage or acute in farction. No extraaxial fluid collections are seen. The pituitary gland and suprasellar cistern are normal in configuration. WHITE MATTER: No significant signal abnormalities are seen in the white matter. POSTERIOR FOSSA: The cerebellum and brainstem are intact. The 4th ventricle is midline. The cerebellopontine angle is unremarkable. The cerebellar tonsils are normal in position. DIFFUSION IMAGING: No focal areas of restricted diffusion are seen. No evidence of acute infarction. EXTRACRANIAL: The visualized portions of the orbits and paranasal sinuses are unremarkable. A lipoma is noted in th e scalp over the superior calvarium. POST-CONTRAST: No abnormal areas of parenchymal or dural enhancement. No evidence of blood-brain barrier breakdown. CONCLUSION: 1. No acute hemorrhage, mass or infarction. 2. Scalp lipoma. Amando Wang MD on September 04, 2017 at 13:06 Board Certified Radiologist. This report was verified electronically.
--- NOTE | 2017-09-04 13:28 | RADRPT ---
EXAM DATE/TIME: 09/04/2017 11:34 [facility] COMPARISON: MRI BRAIN W & W/O CONTRAST, September 04, 2017, 11:34. INDICATIONS : Syncope. MEDICAL HISTORY : Seizures. SURGICAL HISTORY : section. ENCOUNTER: Initial ACUITY: 2 day PAIN SCORE: 0/10 LOCATION: head Please note a normal MRA of the brain does not entirely exclude the possibility of a small aneurysm, nor the possibility of distal intracranial vessel disease. TECHNIQUE: 3D time of flight MRA was performed. Source images, multiplanar STS MIP, and 3D volume MIP reconstru ctions were reviewed. FINDINGS: There is minimal scattered apparent stenoses present particularly in the right hemisphere at the orig in of the anterior and posterior division of the right middle cerebral artery. There is no major branch vessel occlusion. There is no aneurysm or vascular displacement. CONCLUSION: Abnormal MRA of the brain. This can be seen with vasculitis. Toney Nova MD FACR on September 04, 2017 at 13:26 Board Certified Radiologist. This report was verified electronically.
[2017-09-04] MEDS: SODIUM CHLOR 0.9% 1000 ML INJ 1,000 ML IV SCH ×2 (18:39)
--- NOTE | 2017-09-04 21:08 | RADRPT ---
EXAM DATE/TIME: 09/04/2017 20:01 [facility] COMPARISON: US CAROTID ARTERIES, September 04, 2017, 10:02. INDICATIONS : Syncope for one day. IV CONTRAST: 100 cc Omnipaque 350 (iohexol) IV RADIATION DOSE: 15.85 CTDIvol (mGy) ; Combined studies MEDICAL HISTORY : Seizures. SURGICAL HISTORY : section. ENCOUNTER: Initial ACUITY: 1 day PAIN SCALE: 3/10 LOCATION: Bilateral neck region. Elevated flow velocities and ICA/CCA ratios have been found to correlate with increased degrees of vessel stenosis, calculated as percentage of diameter relative to a normal segment of distal ICA/CCA. TECHNIQUE: Volumetric scanning was performed using a multirow detector CT scanner. The data was post processed with a variety of visualization algorithms including full-volume maximum intensity projection, multip lanar sliding thin-slab reformation, curved-planar reformation, and surface-rendering techniques. Us ing automated exposure control and adjustment of the mA and/or kV according to patient size, radiatio n dose was kept as low as reasonably achievable to obtain optimal diagnostic quality images. DICOM f ormat image data is available electronically for review and comparison. FINDINGS: AORTIC ARCH: There is a three-vessel origin of the great vessels from the aorta. No evidence of ostial narrowing. RIGHT CAROTID: The common carotid artery is intact. The carotid bulb has a normal configuration without ulceration o r narrowing. The internal carotid artery lumen is smooth without stenosis. The external carotid mari ry is intact. LEFT CAROTID: The common carotid artery is intact. The carotid bulb has a normal configuration without ulceration or narrowing. The internal carotid artery lumen is smooth without stenosis. The external carotid ar dominic is intact. VERTEBRALS: The vertebral arteries have a symmetric diameter. No stenotic lesions are seen. CONCLUSION: The carotid and vertebral arteries are intact. Please see CT of the brain for further details on the intracranial circulation. Amando Wang MD on September 04, 2017 at 21:04 Board Certified Radiologist. This report was verified electronically.
--- NOTE | 2017-09-04 21:48 | RADRPT ---
EXAM DATE/TIME: 09/04/2017 20:01 [facility] COMPARISON: No previous studies available for comparison. INDICATIONS : Syncope for one day. IV CONTRAST: 100 cc Omnipaque 350 (iohexol) IV RADIATION DOSE: 15.85 CTDIvol (mGy) ; Combined studies MEDICAL HISTORY : Seizures. SURGICAL HISTORY : section. ENCOUNTER: Initial ACUITY: 1 day PAIN SCALE: 3/10 LOCATION: Bilateral cranial TECHNIQUE: Volumetric scanning was performed using a multi-row detector CT scanner. The data was post processed with a variety of visualization algorithms including full volume maximum intensity projection, multi -planar sliding thin slab reformation, curved planar reformation, and surface rendering techniques. Using automated exposure control and adjustment of the mA and/or kV according to patient size, radiat ion dose was kept as low as reasonably achievable to obtain optimal diagnostic quality images. DICO M format image data is available electronically for review and comparison. FINDINGS: There is excellent visualization of the major intracranial arteries out to the second-order branch ve ssels. There is no evidence for aneurysm, vessel truncation or stenosis, and no evidence for vascula r malformation. The anterior, middle and posterior cerebral arteries all demonstrate a fine beaded like appearance wi th no high-grade stenosis identified. The vertebral arteries are intact. The basilar artery appears u nremarkable CONCLUSION: Fine beaded like appearance to the cerebral arteries of concern for vasculitis. Amando Wang MD on September 04, 2017 at 21:45 Board Certified Radiologist. This report was verified electronically.
[2017-09-04 22:08] LABS: HEMOGLOBIN A1C 5.6 % (4.3-6.0)
[2017-09-05 00:10] VITALS: PULSE 80
--- NOTE | 2017-09-05 00:10 | MG ---
cc: KIM HOUSE MD Sex: F DATE OF : [address] Lewis. 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 Caffeine , tobacco abuse. Anemia, lab work positive for cocaine. MEDICATIONS 1. Ferrous sulfate. 2. Vitamin C EEG DESCRIPTION The background rhythm is 9-10 Hz alpha located posterior with posterior to anterior gradient attenuates to eye-opening. Superimposed by excess beta activity. Hyperventilation did not change the background of the recording. Photic stimulation did not elicit driving response. During the EEG recording there was slowing of the background replaced by 5-6 Hz theta rhythm. With the appearance of sleep spindles K complex transitioned into stage II sleep. There were no electrographic seizures or epileptiform discharges noted during the recording. INTERPRETATION: This is a normal awake, drowsy and asleep EEG. Excess beta activity is a nonspecific finding that may be related to medication effects like benzos and barbiturate. Absence of electrographic seizures or epileptiform discharges does not rule out a diagnosis of epilepsy. Clinical correlation is recommended. Kim House MD [facility] /8:13 PM /12:10 AM ANDI
--- NOTE | 2017-09-05 00:10 | MG ---
cc: KIM HOUSE MD Sex: F DATE OF : [address] Lewis. 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 Caffeine , tobacco abuse. Anemia, lab work positive for cocaine. MEDICATIONS 1. Ferrous sulfate. 2. Vitamin C EEG DESCRIPTION The background rhythm is 9-10 Hz alpha located posterior with posterior to anterior gradient attenuates to eye-opening. Superimposed by excess beta activity. Hyperventilation did not change the background of the recording. Photic stimulation did not elicit driving response. During the EEG recording there was slowing of the background replaced by 5-6 Hz theta rhythm. With the appearance of sleep spindles K complex transitioned into stage II sleep. There were no electrographic seizures or epileptiform discharges noted during the recording. INTERPRETATION: This is a normal awake, drowsy and asleep EEG. Excess beta activity is a nonspecific finding that may be related to medication effects like benzos and barbiturate. Absence of electrographic seizures or epileptiform discharges does not rule out a diagnosis of epilepsy. Clinical correlation is recommended. Kim House MD [facility]/[place] /8:13 PM /12:10 AM ANDI
--- NOTE | 2017-09-05 00:10 | MG ---
cc: KIM HOUSE MD Sex: F DATE OF : [address] Lewis. 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 Caffeine , tobacco abuse. Anemia, lab work positive for cocaine. MEDICATIONS 1. Ferrous sulfate. 2. Vitamin C EEG DESCRIPTION The background rhythm is 9-10 Hz alpha located posterior with posterior to anterior gradient attenuates to eye-opening. Superimposed by excess beta activity. Hyperventilation did not change the background of the recording. Photic stimulation did not elicit driving response. During the EEG recording there was slowing of the background replaced by 5-6 Hz theta rhythm. With the appearance of sleep spindles K complex transitioned into stage II sleep. There were no electrographic seizures or epileptiform discharges noted during the recording. INTERPRETATION: This is a normal awake, drowsy and asleep EEG. Excess beta activity is a nonspecific finding that may be related to medication effects like benzos and barbiturate. Absence of electrographic seizures or epileptiform discharges does not rule out a diagnosis of epilepsy. Clinical correlation is recommended. Kim House MD [facility]/[place] /8:13 PM /12:10 AM ANDI
[2017-09-05 03:09] VITALS: BP 96/55; PULSE 72; RESP 16; TEMP 98.9; O2SAT 100
[2017-09-05] MEDS: SODIUM CHLOR 0.9% 1000 ML INJ 1,000 ML IV SCH ×2 (04:28)
[2017-09-05 06:30] LABS: HEMATOCRIT 28.4 % (35.0-46.0); HEMOGLOBIN 8.6 GM/DL (11.6-15.3)
[2017-09-05 07:10] VITALS: PULSE 78
[2017-09-05 07:20] VITALS: BP_SYST 106; BP_SYST 108; BP_SYST 112; BP_DIAS 51; BP_DIAS 62; BP_DIAS 63; PULSE 81; RESP 20; TEMP 98.7; O2SAT 100
--- NOTE | 2017-09-05 07:35 | HHI.PR ---
Subjective Remarks sr Objective Vital Signs Date Time Temp Pulse Resp B/P (MAP) Pulse Ox O2 Delivery O2 Flow Rate FiO2 09/05/17 07:20 98.7 81 20 106/51 (69) 100 108/62 (77) 112/63 (79) 09/05/17 03:09 98.9 72 16 96/55 (69) 100 09/05/17 00:10 80 09/04/17 22:41 97.9 81 16 109/61 (77) 100 09/04/17 20:05 80 09/04/17 19:57 98.2 82 16 126/56 (79) 100 09/04/17 15:50 77 09/04/17 13:24 97.6 71 20 115/64 (81) 100 117/74 (88) 129/73 (91) 09/04/17 09:33 70 09/04/17 08:35 86 124/76 (92) 100 09/04/17 08:34 86 22 113/66 (82) 100 09/04/17 07:51 98.6 82 22 117/63 (81) 100 I/O 09/04/17 09/04/17 09/04/17 09/05/17 09/05/17 09/05/17 07:00 15:00 23:00 07:00 15:00 23:00 Intake Total 525 ml 720 ml Balance 525 ml 720 ml Intake Oral 720 ml IV Total 205 ml Packed Cells 320 ml # Voids 1 2 Result Diagram: 09/05/17 0513 09/04/17 0657 Objective Remarks awake alert nad moves all well Assessment and Plan Assessment and Plan imp echo torn teninae mv defer to med team holter pend esr 30 cta neck neg mri brain neg eeg nl cta head some slight beading i think likley from cocaine use and i dw dc it fu carlo anca crp i think unlikley from vasculitis per se i called but no anser to uncle [phone] and need to dw him b4 dc today if he could call my office ow ok to dc dc cocaine not to drive for 6 mo Mac Sosa MD Sep 05, 2017 07:35
[2017-09-05] MEDS: FERROUS SULFATE 325 MG (65 MG ELEMENTAL IRON) TAB PO SCH ×2 (10:23)
[2017-09-05] MEDS: ASCORBIC ACID 500 MG TAB PO SCH ×2 (10:23)
[2017-09-05] MEDS: SODIUM CHLORIDE 0.9% FLUSH 10 ML FLUSH IV FLUSH SCH ×2 (10:24)
--- NOTE | 2017-09-05 11:17 | HHI.PR ---
Subjective Remarks Follow up on patient with seizure, anemia. Patient seen and examined. Patient states she feels well. Denies any complaints. No seizure activity reported. Denies any dyspnea, chest pain, lightheadedness or dizziness. She reports heavy menses for the past few months. 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 Objective Vitals Vital Signs Date Time Temp Pulse Resp B/P (MAP) Pulse Ox O2 Delivery O2 Flow Rate FiO2 09/05/17 07:20 98.7 81 20 106/51 (69) 100 108/62 (77) 112/63 (79) 09/05/17 03:09 98.9 72 16 96/55 (69) 100 09/05/17 00:10 80 09/04/17 22:41 97.9 81 16 109/61 (77) 100 09/04/17 20:05 80 09/04/17 19:57 98.2 82 16 126/56 (79) 100 09/04/17 15:50 77 09/04/17 13:24 97.6 71 20 115/64 (81) 100 117/74 (88) 129/73 (91) I/O 09/04/17 09/04/17 09/04/17 09/05/17 09/05/17 09/05/17 07:00 15:00 23:00 07:00 15:00 23:00 Intake Total 525 ml 720 ml Balance 525 ml 720 ml Intake Oral 720 ml IV Total 205 ml Packed Cells 320 ml # Voids 1 2 Result Diagram: 09/05/17 0513 09/04/17 0657 Imaging Last Impressions Neck CTA 09/04/17 1839 Signed Impressions: Service Date/Time: Monday, September 04, 2017 20:01 - CONCLUSION: The carotid and vertebral arteries are intact. Please see CT of the brain for further details on the intracranial circulation. Amando Wang MD Head Magnetic Resonance Angiography 09/04/17819 Signed Impressions: Service Date/Time: Monday, September 04, 2017 11:34 - CONCLUSION: Abnormal MRA of the brain. This can be seen with vasculitis. Toney Nova MD FACR Carotid Artery Ultrasound 09/04/17819 Signed Impressions: Service Date/Time: Monday, September 04, 2017 10:02 - CONCLUSION: Negative examination for a hemodynamically significant carotid stenosis. Board Certified Radiologist. This report was verified electronically. Brain MRI 09/04/17 0820 Signed Impressions: Service Date/Time: Monday, September 04, 2017 11:34 - CONCLUSION: 1. No acute hemorrhage, mass or infarction. 2. Scalp lipoma. Amando Wang MD Head CT 09/03/17 0000 Signed Impressions: Service Date/Time: Sunday, September 03, 2017 17:03 - CONCLUSION: No acute findings in the brain. Albert Cai MD Objective Remarks GENERAL: This is a well-nourished, well-developed patient, in no apparent distress. Asleep but easily awakens to voice. Appears comfortable. Family at the bedside. SKIN: No rashes, ecchymoses or lesions. Cool and dry. HEAD: Atraumatic. Normocephalic. EYES: No scleral icterus. No injection or drainage. EOMI. ENT: Nose without bleeding, purulent drainage. MMM. NECK: Trachea midline. CARDIOVASCULAR: Regular rate and rhythm without murmurs, gallops, or rubs. RESPIRATORY: Clear to auscultation. Breath sounds equal bilaterally. No wheezes , rales, or rhonchi. GASTROINTESTINAL: Abdomen soft, non-tender, nondistended. No guarding. MUSCULOSKELETAL: Extremities without clubbing, cyanosis, or edema. No calf tenderness. NEUROLOGICAL: Awake and alert. Motor and sensory grossly within normal limits. Normal speech. Medications and IVs Current Medications Medications (Trade) Dose Ordered Sig/Monet Route Start Time Stop Time Status Last Admin (NS Flush) 2 ml UNSCH PRN IV FLUSH 09/03/17 19:30 (NS Flush) 2 ml BID IV FLUSH 09/03/17 21:00 09/05/17 10:24 (Zofran Inj) 4 mg Q6H PRN IVP 09/03/17 19:30 (Narcan Inj) 0.4 mg UNSCH PRN IV PUSH 09/03/17 19:30 (Milk Of Magnesia Liq) 30 ml Q12H PRN PO 09/03/17 19:30 (Senokot) 17.2 mg Q12H PRN PO 09/03/17 19:30 (Dulcolax Supp) 10 mg DAILY PRN RECTAL 09/03/17 19:30 (Lactulose Liq) 30 ml DAILY PRN PO 09/03/17 19:30 (Vitamin C) 500 mg TID PO 09/04/17 13:00 09/05/17 10:23 (Ferrous Sulfate) 325 mg TID PO 09/04/17 13:00 09/05/17 10:23 Sodium Chloride 1,000 ml @ 75 mls/hr [id number] IV 09/04/17 18:39 09/05/17 04:28 A/P Problem List: (1) Symptomatic anemia ICD Code: D64.9 - Anemia, unspecified (2) Seizures ICD Code: R56.9 - Unspecified convulsions (3) Hypokalemia ICD Code: E87.6 - Hypokalemia Assessment and Plan 42 y/o female who presented to the ED on 09/03 after a witnessed seizure at home who was found to be severely anemic in ED. Symptomatic Anemia, hemoglobin 6.8 CELESTE - s/p 1 unit of PRBCs - with symptom improvement. -hemoglobin stable s/p transfusion - Iron 12, TIBC 476, %sat 2.5, Ferritin 4. s/p Iron Sucrose 100mg IV. Continue po iron supplementation with vitamin C TID. Dysmenorrhagia - consult gynecology for heavy menses, symptomatic anemia Seizure, recurrent - seizure precautions - neuro checks q4h - Neurology following - appreciate assistance. CTA neck neg. MRI brain neg. EEG nl. MRA brain showing minimal apparent stenoses present in the right hemisphere, CTA brain showing fine beaded like appearance of the cerebral arteries - unlikely vasculitis/likely due to cocaine use per Neuro. No driving for 6 mos. Holter pending. ESR 30. RPR negative. JAME pending. Echo showing EF 60-65%, may be a torn chordae tendinae in the mitral valve structure but without any prolapse or regurgitation. Patient has no cardiac complaints. Neurology attempting to contact patients uncle prior to clearing for discharge. Hypokalemia - Potassium 3.3 on admission - Potassium replaced - Resolved Cocaine use - advised on cessation DVT prophylaxis - SCDs Discussed with patient and Dr. Chirinos Discharge Planning Pending further workup and Neurology clearance for discharge Lissy Alvarez Sep 05, 2017 11:17
[2017-09-05 13:26] LABS: C-REACTIVE PROTEIN 0.77 MG/DL (0.00-0.30)
--- NOTE | 2017-09-05 16:04 | HHI.DS ---
Discharge Summary Admission Date Sep 03, 2017 at 19:22 Discharge Date: Sep 05, 2017 (PATIENT LEFT AMA) Admitting Diagnosis SYMPTOMATIC ANEMIA/NEARSYNCOPE (1) Symptomatic anemia ICD Code: D64.9 - Anemia, unspecified (2) Seizures ICD Code: R56.9 - Unspecified convulsions (3) Hypokalemia ICD Code: E87.6 - Hypokalemia Procedures None Brief History - From Admission Written by Hayley Delvalle, acting as scribe for Dr. Lewis on 09/03/17 at 21:34. Reports having a seizure at about 4 p.m. Denies bowel or bladder incontinence. Reports weakness and fatigue with feeling cold for about 1 week. She has also been taking ibuprofen 800 mg once a day for the last week for headache. Denies history of anemia. States she's never been told she needs iron. Reports she had been on her period for 3 weeks with heavy bleeding. Off her period for the past week. Denies chest pain, shortness of breath, nausea, vomiting, or diarrhea. Denies abdominal pain, black or bloody stools. She states she's been having some constipation. Denies using cocaine or taking decongestants. She states she's been drinking a lot of coffee for the past week - 3 or 4 cups a day. No coffee prior to last week. Does not take antiepileptic medications, last seizure was 6 months ago, she does not follow with a neurologist. CBC/BMP: 09/05/17 0513 09/04/17 0657 Significant Findings Laboratory Tests Test 09/03/17 16:00 09/04/17 06:57 09/04/17 18:30 09/05/17 05:13 Red Blood Count 3.59 MIL/MM3 (4.00-5.30) Hemoglobin 6.8 GM/DL (11.6-15.3) 9.1 GM/DL (11.6-15.3) 8.6 GM/DL (11.6-15.3) Hematocrit 21.3 % (35.0-46.0) 30.3 % (35.0-46.0) 28.4 % (35.0-46.0) Mean Corpuscular Volume 59.3 FL (80.0-100.0) 64.6 FL (80.0-100.0) Mean Corpuscular Hemoglobin 19.1 PG (27.0-34.0) 19.3 PG (27.0-34.0) Red Cell Distribution Width 20.3 % (11.6-17.2) 23.7 % (11.6-17.2) Target Cells 1+ (NORMAL) Urine Protein 30 mg/dL (NEG-TRACE) Urine Ketones TRACE mg/dL (NEG) Urine Leukocyte Esterase TRACE (NEG) Blood Urea Nitrogen 6 MG/DL (7-18) Calcium Level 8.3 MG/DL (8.5-10.1) 8.4 MG/DL (8.5-10.1) Potassium Level 3.3 MEQ/L (3.5-5.1) Iron Level 12 MCG/DL (50-170) Total Iron Binding Capacity 476 MCG/DL (250-450) Percent Iron Saturation 2.5 % (20-50) Ferritin 4 NG/ML (8-252) Urine Cocaine Screen POS (NEG) Mean Corpuscular Hemoglobin Concent 29.9 % (32.0-36.0) Neutrophils (%) (Auto) 70.9 % (16.0-70.0) Troponin I LESS THAN 0.02 NG/ML HDL Cholesterol 73.6 MG/DL (40.0-60.0) Erythrocyte Sedimentation Rate 30 mm/hr (0-20) Test 09/05/17 12:30 C-Reactive Protein 0.77 MG/DL (0.00-0.30) Imaging Last Impressions Neck CTA 09/04/[id number] Signed Impressions: Service Date/Time: Monday, September 04, 2017 20:01 - CONCLUSION: The carotid and vertebral arteries are intact. Please see CT of the brain for further details on the intracranial circulation. Amando Wang MD Head CTA 09/04/[id number] Signed Impressions: Service Date/Time: Monday, September 04, 2017 20:01 - CONCLUSION: Fine beaded like appearance to the cerebral arteries of concern for vasculitis. Amando Wang MD Head Magnetic Resonance Angiography 09/04/17 6884 Signed Impressions: Service Date/Time: Monday, September 04, 2017 11:34 - CONCLUSION: Abnormal MRA of the brain. This can be seen with vasculitis. Toney Nova MD FACR Carotid Artery Ultrasound 09/04/17819 Signed Impressions: Service Date/Time: Monday, September 04, 2017 10:02 - CONCLUSION: Negative examination for a hemodynamically significant carotid stenosis. Board Certified Radiologist. This report was verified electronically. Brain MRI 09/04/17819 Signed Impressions: Service Date/Time: Monday, September 04, 2017 11:34 - CONCLUSION: 1. No acute hemorrhage, mass or infarction. 2. Scalp lipoma. Amando Wang MD Head CT 09/03/17 0000 Signed Impressions: Service Date/Time: Sunday, September 03, 2017 17:03 - CONCLUSION: No acute findings in the brain. Albert Cai MD PE at Discharge GENERAL: This is a well-nourished, well-developed patient, in no apparent distress. Asleep but easily awakens to voice. Appears comfortable. Family at the bedside. SKIN: No rashes, ecchymoses or lesions. Cool and dry. HEAD: Atraumatic. Normocephalic. EYES: No scleral icterus. No injection or drainage. EOMI. ENT: Nose without bleeding, purulent drainage. MMM. NECK: Trachea midline. CARDIOVASCULAR: Regular rate and rhythm without murmurs, gallops, or rubs. RESPIRATORY: Clear to auscultation. Breath sounds equal bilaterally. No wheezes , rales, or rhonchi. GASTROINTESTINAL: Abdomen soft, non-tender, nondistended. No guarding. MUSCULOSKELETAL: Extremities without clubbing, cyanosis, or edema. No calf tenderness. NEUROLOGICAL: Awake and alert. Motor and sensory grossly within normal limits. Normal speech. Pt update on day of discharge Patient seen and examined. Patient without any complaints. No seizure activity reported. Denied any dyspnea, chest pain, lightheadedness or dizziness. Gynecology consulted and [facility]. Awaiting Neurology clearance for discharge. Patient left AMA. Hospital Course 42 y/o female who presented to the ED on 09/03 after a witnessed seizure at home who was found to be severely anemic in ED. Symptomatic Anemia, hemoglobin 6.8 CELESTE - s/p 1 unit of PRBCs - with symptom improvement. -hemoglobin stable s/p transfusion - Iron 12, TIBC 476, %sat 2.5, Ferritin 4. s/p Iron Sucrose 100mg IV. Continue po iron supplementation with vitamin C TID. Dysmenorrhagia - consult gynecology for heavy menses, symptomatic anemia. Recommended outpatient follow up at [facility]. Seizure, recurrent - seizure precautions - neuro checks q4h - Neurology following - appreciate assistance. CTA neck neg. MRI brain neg. EEG nl. MRA brain showing minimal apparent stenoses present in the right hemisphere, CTA brain showing fine beaded like appearance of the cerebral arteries - unlikely vasculitis/likely due to cocaine use per Neuro. No driving for 6 mos. Holter pending. ESR 30. RPR negative. JAME pending. Echo showing EF 60-65%, may be a torn chordae tendinae in the mitral valve structure but without any prolapse or regurgitation. Patient has no cardiac complaints. - Neurology attempting to contact uncle to discuss seizure event. Awaiting Neuro clearance for discharge - patient left AMA. Hypokalemia - Potassium 3.3 on admission - Potassium replaced - Resolved Cocaine use - advised on cessation DVT prophylaxis - SCDs Discussed with patient and Lissy Thompson Sep 05, 2017 16:04
--- NOTE | 2017-09-06 12:22 | HM ---
Date Performed: 09/04/2017 Time Performed: 17:45:00 HOOKUP DATE: 09/04/17 05:45:00 PM Wed ANALYSIS START TIME: 09/04/2017 5:50:00 PM ANALYSIS END TIME: 09/05/2017 7:28:26 AM PATIENT AGE: 42 PATIENT HEIGHT PATIENT WEIGHT DRUG LIST PATIENT DIAGNOSIS: NEAR SYNCOPE TEST NARRATIVE: The patient's average heart rate was 79 BPM. No episodes of tachycardia wer e noted. No episodes of bradycardia were noted. No pauses exceeding 2.0 seconds were noted. No ventricular ectopics were noted. 2 supraventricular ectopics, which represented < 1% of the to park beat count, were noted. The highest supraventricular ectopic frequency occurred from 12:00 AM to 01:00 AM Q[place]. During this time 1 SVE(s) occurred. No episodes of ST depression (defined as -1.0 mm or more) were noted in channel 1. No episodes of ST depression (defined as -1.0 mm or more) were noted in channel 2. No episodes of ST depression (defined as -1.0 mm or more) were noted in channel 3. NO DIARY ENTRIES TEST INTERPRETATION: The patient is monitored for 13 hours and 38 minutes. The average heart rat e was 79, max heart rate 115 and minimum heart rate of 62. There were 2 PACs and no PVCs. CONCLUSION : Benign Holter monitor but only 13 hours and 38 minutes recorded. No symptoms were recorded. Signed by : Reinaldo Hebert
[2017-09-06 14:36] LABS: ANA SCREEN NEG (NEG)
[2017-09-09 10:38] LABS: ALB/GLOB RATIO (SPE) 1.36 (1.39-2.23)
== END 2017-09-05 14:23 | disposition left against medical advice (07) ==
LOC: NEPD 15:35 → NEDA 19:22 → NEPHCDU 20:25
PROVIDERS: ADMIT Hospitalist; ATTEND Hospitalist
DX: R56.9 Unspecified convulsions (principal); D64.9 Anemia, unspecified; E87.6 Hypokalemia; F14.90 Cocaine use, unspecified, uncomplicated; F17.210 Nicotine dependence, cigarettes, uncomplicated; N92.0 Excessive and frequent menstruation with regular cycle; K59.00 Constipation, unspecified
CPT/HCPCS: 36430; 70450; 70496; 70498; 70544; 70553; 80048; 80053; 80061; 80307; 81001; 82607; 82728; 83036; 83540; 83550; 83921; 84165; 84425; 84439; 84443; 84484; 84702; 85007; 85014; 85018; 85025; 85027; 85652; 86021; 86038; 86140; 86592; 86850; 86900; 86901; 86920; 93005; 93225; 93226; 93306; 93880; 95819; 96361; 96365; 97161; 99285; A9579; G0378; G8987; G8988; J1756; J7030; J7050; P9016; Q9967